=== PATIENT | male | born 1935 | race Caucasian/White ===

== ENCOUNTER 2016-09-24 05:07 | Emergency (ER) | payer MEDICARE, OTHER ==
[2016-09-24] MEDS ORDERED: DEXAMETHASONE 10 MG/ML VIAL PO STA (05:56)
[2016-09-24] MEDS ORDERED: ALBUTEROL NEB 2.5 MG/3 ML INH STA (05:56)
[2016-09-24] MEDS ORDERED: BENZONATATE 100 MG CAPSULE PO STA (05:56)
[2016-09-24] MEDS ORDERED: BENZONATATE 100 MG CAPSULE PO ONE (05:59)
[2016-09-24] MEDS ORDERED: CHERRY SYRUP 10 ML UDC PO ONE (05:59)
[2016-09-24] MEDS ORDERED: DEXAMETHASONE 10 MG/ML VIAL ONE (05:59)
[2016-09-24] MEDS ORDERED: ALBUTEROL NEB 2.5 MG/3 ML INH ONE (06:05)
== END 2016-09-24 07:19 | disposition home or self-care (01) ==
DX: J40 Bronchitis, not specified as acute or chronic (principal); I10 Essential (primary) hypertension; Z85.118 Personal history of other malignant neoplasm of bronchus and lung; Z87.01 Personal history of pneumonia (recurrent)
CPT/HCPCS: 71020; 94640; 99283; A9270; J7613

== ENCOUNTER 2017-08-19 13:40 | Outpatient (CLI) | payer MEDICARE, OTHER ==
[2017-08-19 18:18] LABS: CALCIUM 9.8 mg/dL (8.5-10.3); CREATININE 1.1 mg/dL (0.6-1.2)
== END 2017-08-19 13:41 | disposition home or self-care (01) ==
LOC: LAB.F 13:40
PROVIDERS: ATTEND Internal Medicine
DX: I10 Essential (primary) hypertension (principal)
CPT/HCPCS: 36415; 80048

== ENCOUNTER 2018-01-14 10:09 | Outpatient (CLI) | payer MEDICARE, OTHER ==
--- NOTE | 2018-01-14 22:02 | XRAY Report ---
Procedure Date: 01/14/2018 Accession Number: [id number] / [id number] Procedure: XRS - Cervical Spine Complete CPT Code: FULL RESULT: EXAM: CERVICAL SPINE RADIOGRAPHY EXAM DATE: 01/14/2018 10:23 AM. 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 COMPARISONS: None. TECHNIQUE: 5 views, including oblique views. FINDINGS: Alignment: Minimal scoliosis. Normal lordosis. No listhesis. Bones: The cervical vertebral bodies and posterior elements are well-visualized from the skull base through C7-T1. No fractures or bone lesions. Disks: Mild disk space narrowing at C4-C5. Other disk spaces preserved. Facets: Generalized degenerative changes. Neural Foramina: Narrowing on the right at C4-C5 and C5-C6. More prominent narrowing on the left at C3-C4 and C4-C5. Soft Tissues: No prevertebral soft tissue swelling. Mild dilation of the aortic arch, measuring 4.6 cm in this study. Clear visualized lung. IMPRESSION: 1. Multilevel degenerative changes, with neural foraminal narrowing, left more than right. 2. Dilated aortic arch. Dedicated imaging may be helpful. [facility]
== END 2018-01-14 10:10 | disposition home or self-care (01) ==
LOC: DI.S 10:09
PROVIDERS: ATTEND Nurse Practitioner Family
DX: M50.321 Other cervical disc degeneration at C4-C5 level (principal); M47.892 Other spondylosis, cervical region; I77.810 Thoracic aortic ectasia
CPT/HCPCS: 72050

== ENCOUNTER 2018-01-24 12:56 | Outpatient (CLI) | payer MEDICARE, OTHER | END 2018-01-24 12:57 | disposition home or self-care (01) | LOC: DI 12:56 | PROVIDERS: ATTEND Physician Assistant | DX: I77.810 Thoracic aortic ectasia (principal) | CPT/HCPCS: 93306 ==

== ENCOUNTER 2019-03-10 19:10 | Outpatient (CLI) | payer MEDICARE, OTHER | END 2019-03-10 19:11 | disposition home or self-care (01) | LOC: SC 19:10 | PROVIDERS: ATTEND Internal Medicine Pulmonary Disease | DX: G47.33 Obstructive sleep apnea (adult) (pediatric) (principal) | CPT/HCPCS: 95810 ==

== ENCOUNTER 2019-03-19 11:10 | Outpatient (CLI) | payer MEDICARE, OTHER ==
--- NOTE | 2019-03-19 12:36 | SLEEP CARE CONSULTATION ---
Information from patient questionnaire entered by Sandra Baker. I have reviewed and concur with the information entered by Sandra Baker. This document represents the service I personally performed and the decisions made by me, Kathe Jones RN, MSN, TECHNICAL SALES REPRESENTATIVE. History of Present Illness Initial [place] Sleepiness Scale score: 8 Current [place] Sleepiness Scale score: 15 Additional HPI information: JESSE ZAMBRANO returns for follow up of the recently performed polysomnography. The patient was informed of the following polysomnography findings as noted in study section of this report. I explained the pathophysiology behind obstructive sleep apnea. We then spent quite a bit of time discussing different treatment options. For mild obstructive sleep apnea, surgery and oral appliance are alternatives to nasal CPAP therapy but in moderate or severe cases, nasal CPAP is the most effective and reliable treatment. After some discussion, the patient opted to go with the nasal CPAP therapy. Nasal autoCPAP set at [id number] will be ordered with rationale explained until a manual titration study can be completed to determine optimal treatment mode. I explained how CPAP machine works with sample devices [employer] Dreamstation and [id number] and what to expect when using the machine. He would like to use the Dreamstation from his previous research. Using CPAP every night in order to get used to it was emphasized. Patient advised to put CPAP mask on before getting into bed so as not to fall asleep without CPAP. To assist acclimation to CPAP use, it could also be used for a short time during day while reading or watching TV. The patient was instructed to call the CPAP supplier to discuss any mechanical problem that may occur. If the mask given is uncomfortable or is difficult to keep on through the night even with adjustment, contact the CPAP supplier as many will replace with another mask style if notified before 30 days. If snoring or perceives is not getting enough air or too much air from the machine, notify this office. [facility] patient education PAP tips reviewed and given to patient. Patient counseled not drink alcohol less than 4 hours before bedtime as it can increase snoring and apnea. Patient was cautioned about risks of drowsy driving until sleepiness symptoms resolve. Patient denies drowsy driving. [facility] patient education on snoring and sleep apnea given and reviewed. Sleep Study - Polysomnography Polysomnography findings: The quality of the study is good. The patient had normal sleep efficiency. The sleep architecture was abnormal for sleep fragmentation and reduced amount of time spent in REM and slow wave sleep (N3). Respiratory monitoring showed severe obstructive sleep apnea-hypopnea (AHI = 57.0) associated with frequent arousals, oxyhemoglobin desaturation and moderate hypoxia (brandyn oxygen saturation of 74 %). The patient only slept supine during this study (supine AHI = 57.0; non- supine = 0.00). Snore was loud in intensity. There was no periodic leg movement of sleep. Cardiac rhythm was normal sinus rhythm without significant arrhythmia. No abnormal behavior (parasomnia) observed during the night. Allergies and Home Medications Known drug allergies: No Home medication list reviewed: Yes Allergy and home medication list: losartan 1 daily triamterene 1/2 daily singular 1 daily lycine 1 daily omeprazole daily ibuprofen as needed carisoprodol ( Soma) as needed Review of Systems Review of systems same as previous: Yes (He denies any changes) Physical Exam Blood Pressure: 114/60 Cuff size: regular Height: 5 ft 8 in Weight (kg): 73.573 kg Body Mass Index: 24.6 BMI Classification: Healthy weight Impression and Plan 1. Obstructive Sleep Apnea-Hypopnea Syndrome, severe, with lowest oxygen saturation of 74%. Obviously this is the cause of the patients symptoms of unrefreshed sleep, and excessive daytime sleepiness. Positive pressure therapy could benefit his hypertension. As mentioned above, the patient will be started on nasal autoCPAP therapy with pressure set at 4-15 cmH2O until a manual titration study can be completed to find optimal treatment mode. An urgent request for set up was requested due to apnea severity and hypoxia. Compliance guidelines also reviewed. A copy of compliance guidelines will be given for reference. Since it is unknown whether his apnea is less non-supine, I advised patient to sleep with head of bed elevated 30-40 degrees to reduce some apnea risk. For his report of waking to loud noise from apneas that his does not hear, I will confer with Dr. Montoya. * Nasal auto CPAP therapy, pressure at 4-15cm H2O. * Schedule manual titration study. * Avoid alcohol consumption / muscle relaxants near bedtime. * The patient is again cautioned about driving until sleepiness completely resolves. * Confer with Dr. Montoya re loud noise report. * Return one month after CPAP obtained. I will assess response to therapy and compliance at that time. Addendum: 17:15 message was left on dedicated voicemail when noted muscle relaxant on his med list. Advised to abstain use prior to bed like alcohol or any sedative due to increased risk of apnea with use. Patient advised to call if any questions. I spent 100% of this 35 minute visit face to face with the patient with greater than 50% of this was spent time counseling the patient and coordination of care.
[2019-03-19 12:37] VITALS: BP 114/60
== END 2019-03-19 11:11 | disposition home or self-care (01) ==
LOC: SC 11:10
PROVIDERS: ATTEND Nurse Practitioner Family
DX: G47.33 Obstructive sleep apnea (adult) (pediatric) (principal)
CPT/HCPCS: 99215; G0463; 99212

== ENCOUNTER 2019-04-10 19:37 | Outpatient (CLI) | payer MEDICARE, OTHER | END 2019-04-10 19:38 | disposition home or self-care (01) | LOC: SC 19:37 | PROVIDERS: ATTEND Internal Medicine Pulmonary Disease | DX: G47.33 Obstructive sleep apnea (adult) (pediatric) (principal) | CPT/HCPCS: 95811 ==

== ENCOUNTER 2019-05-11 12:49 | Outpatient (CLI) | payer MEDICARE, OTHER ==
--- NOTE | 2019-05-11 14:15 | SLEEP CARE CONSULTATION ---
Information from patient questionnaire entered by Sandra Baker. I have reviewed and concur with the information entered by Sandra Baker. This document represents the service I personally performed and the decisions made by me, Kathe Jones, RN, MSN, PHOTOCOMPOSING MACHINE OPERATOR. History of Present Illness Previous diagnosis: Severe, Obstructive Sleep Apnea-Hypopnea Syndrome AHI: 57 Reason for CPAP/BiPAP follow up: first compliance, with manual titration Equipment obtained from: [employer] (in [place]) Mask style: Full face Mask brand: Respironics Backup mask available: No Last cushion change: not since set up Sleep Study - Polysomnography Polysomnography findings: The quality of the study is good. CPAP was initiated at 4 cmH2O and titrated up to BiPAP at 20/16 cmH2O. CPAP at 12 cmH2O appeared to be best (AHI of 9.5 per hour on the pressure). There was supine REM sleep on the pressure. Oxygen saturation was mildly low due to the frequent residual respiratory events on lower and higher pressures. The patient appeared to have tolerated positive airway pressure therapy fairly well. The patients sleep efficiency was reduced due to sleep onset insomnia and several awakenings during the night. The sleep architecture was abnormal for sleep fragmentation and reduced amount of time spent in REM sleep. There was no significant periodic limb movement of sleep. Cardiac rhythm was normal sinus rhythm without significant arrhythmia (40 - 62). No abnormal behavior (parasomnia) observed during the night. CPAP Compliance Data - Data Reviewed with Patient Average duration of nightly device use: 8.5 Compliance rate %: 100 Current pressure setting (cmH2O): 4-15 Humidity settin Heated hose settin Average residual AHI: 15.1 Central apnea: 2.9 Obstructive apnea: 7.5 Hypopnea: 4.7 Average large leak: 7 mins 54 secs Subjective Patient concerns: reports: air blowing in eyes (occasional and resolved with adjustment), mask leak noise (occasional). denies: aerophagia, mask discomfort, condensation in mask/hose, nasal congestion, dry mouth, nose, throat, epistaxis Observed to snore while using device: No Current pressure setting perceived as: too high (and will use ramp and ramp too low) On therapy, patient: reports: sleeping better, awakening more refreshed, being more awake and alert during the day, more rested overall. denies: drowsiness while driving Initial [place] Sleepiness Scale score: 8 Current [place] Sleepiness Scale score: 7 Allergies and Home Medications Known drug allergies: No Home medication list reviewed: Yes (no changes / all daily except omeprazole as needed ) Review of Systems Review of systems same as previous: Yes Physical Exam Blood Pressure: 116/66 Heart Rate: 60 O2 Saturation: 97 Weight: 167 lb 9.6 oz Impression and Plan 1. Obstructive Sleep Apnea-Hypopnea Syndrome, severe, with good treatment compliance and elevated residual AHI. On CPAP therapy, the patient has better sleep quality and is more rested overall. He now is able to sleep through the night without nocturia as before. The strange noise he noted when waking with apnea prior to treatment is resolved. To reduce his reservoir water running out at end of night, he is advised to reduce heated hose setting and adjust as needed. The titration study showed his best AHI of 9.5 at [id number] pressure. His compliance report showed best AHI at [id number]. So I will change autoCPAP pressure to [id number]. I will also increase ramp to 6cmH20 for comfort snd showed patient how to change ramp on sample CPAP. These change in settings should reduce air hunger at beginning of treatment and reduce feeling of too high of pressure in middle of night. The mask cushion is advised to be changed regularly to maintain firt and comfort of mask which will also reduce mask leaks. Patient's apnea severity and rationale for treatment to reduce apnea, improve sleep quality and reduce cardiovascular and cerebrovascular events was reviewed. I also reviewed the benefit of consistent device use of CPAP for hypertension, gastric reflux. * * Change autoCPAP pressure to 11-12 cmH2O * Notify me if snoring with mask or feeling that the pressure is too much or too little * Update mask cushion * Adjust heated hose * Return for follow up in 1-2 months , or sooner if concerns arise I spent 100% of this 35 minute visit face to face with the patient with greater than 50% of this was spent time counseling the patient and coordination of care.
[2019-05-11 14:16] VITALS: BP 116/66
== END 2019-05-11 12:50 | disposition home or self-care (01) ==
LOC: SC 12:49
PROVIDERS: ATTEND Nurse Practitioner Family
DX: G47.33 Obstructive sleep apnea (adult) (pediatric) (principal)
CPT/HCPCS: 99214; G0463; 99212

== ENCOUNTER 2019-07-01 13:39 | Outpatient (CLI) | payer MEDICARE, OTHER ==
[2019-07-01 15:03] VITALS: BP 122/60
--- NOTE | 2019-07-01 15:03 | SLEEP CARE CONSULTATION ---
Information from patient questionnaire entered by Sandra Baker. I have reviewed and concur with the information entered by Sandra Baker. This document represents the service I personally performed and the decisions made by me, Kathe Jones, RN, MSN, VIDEO SPECIALIST. History of Present Illness Previous diagnosis: Severe, Obstructive Sleep Apnea-Hypopnea Syndrome AHI: 57 Reason for follow up: other (2 month) Equipment type: CPAP Equipment obtained from: [employer] ([place]) Mask style: Full face Backup mask available: No Last cushion change: a week ago HPI additional information: The reduction of heated hose reduced running out water in reservoir. The increase in flatuance has reduced about 50% with use of Gas X. we looked up side effects of gas x online and none noted. The ramp increased setting setting is more comfortable. CPAP Compliance Data - Data Reviewed with Patient Average duration of nightly device use: 8.4 Compliance rate %: 100 (60 days) Current pressure setting (cmH2O): 11-12 Humidity settin Heated hose settin Average residual AHI: 11.5 (patient has noted increased AHI when he sleeps supine ) Central apnea: 1.5 Obstructive apnea: 7.2 Hypopnea: 2.8 Average large leak: 18 min 23 sec Subjective Patient concerns: reports: other (stiff neck from sleeping on his side with hand on pillow to keep mask from making noise. / reports less nocturia and nasal congestion as well as memory since use of CPAP). denies: aerophagia, mask discomfort, air blowing in eyes, mask leak noise, condensation in mask/hose, nasal congestion, dry mouth, nose, throat, epistaxis Observed to snore while using device: No Current pressure setting perceived as: comfortable On therapy, patient: reports: sleeping better, awakening more refreshed, being more awake and alert during the day, more rested overall. denies: drowsiness while driving Initial [place] Sleepiness Scale score: 8 Current [place] Sleepiness Scale score: 4 Allergies and Home Medications Known drug allergies: No Home medication list reviewed: Yes (no changes on list ) Review of Systems Review of systems same as previous: No (ear fungus) Physical Exam Blood Pressure: 122/60 Cuff size: long (5 8) Heart Rate: 49 (50 apical and regular ) O2 Saturation: 98 Height: 5 ft 8 in Weight: 170 lb 6.4 oz Body Mass Index: 25.9 BMI Classification: Overweight Impression and Plan 1. Obstructive Sleep Apnea-Hypopnea Syndrome,severe , with good treatment compliance and slightly elevated residual AHI. . On CPAP therapy, the patient has better sleep quality and is more rested overall. He has also noted benefit in his memory and reduction of nocturia since CPAP use. His questions about supplies and replacement were answered. Replacement supply schedule given and reviewed. He would also like to change from a full face mask with chinstrap to a nasal mask with chinstrap. In addition, he would lie to try a new style of chinstrap. To reduce mask movement when sleeping on his side, I showed him a CPAP pillow. This and other styles can be bought online for about $60. This should reduce the stiff neck from holding his pillow in place. Since he is experiencing increased flatus with CPAP use that is only reduced with use of Gas X, I will try a slightly lower pressure range of [id number] which showed good control of his apnea. He is to contact me if the pressure change is uncomfortable or if he notices increase in residual AHI which he monitors daily on his device. I will also increase his ramp to 8cmH20 to improve comfort of air at initiation of therapy per patient request. Patient's apnea severity and rationale for treatment to reduce apnea, improve sleep quality and reduce cardiovascular and cerebrovascular events was reviewed. I also reviewed the benefit of consistent device use of CPAP for hypertension. * * Change CPAP pressure to 11 cmH2O * Change ramp to 8cmH20. * Consider CPAP pillow * mask refitting * chinstrap refitting. * Notify me if snoring with mask or feeling that the pressure is too much or too little or if having difficulty using CPAP. * Attempt to lose weight * Return for follow up in 6 months , or sooner if concerns arise I spent 100% of this 45 minute visit face to face with the patient with greater than 50% of this was spent time counseling the patient and coordination of care as well as answering his questions about apnea treatment.
== END 2019-07-01 13:40 | disposition home or self-care (01) ==
LOC: SC 13:39
PROVIDERS: ATTEND Nurse Practitioner Family
DX: G47.33 Obstructive sleep apnea (adult) (pediatric) (principal)
CPT/HCPCS: 99214; G0463; 99212

== ENCOUNTER 2019-12-10 16:31 | Outpatient (CLI) | payer MEDICARE, OTHER ==
--- NOTE | 2019-12-10 14:23 | SLEEP CARE CONSULTATION ---
Information from patient questionnaire entered by Sandra Baker. I have reviewed and concur with the information entered by Sandra Baker. This document represents the service I personally performed and the decisions made by me, Kathe Jones, RN, MSN, MAP EDITOR. History of Present Illness Service Date and Time: 12/10/2019 1400 Previous diagnosis: Severe, Obstructive Sleep Apnea-Hypopnea Syndrome AHI: 57 (in 2019) Reason for follow up: other (5 month) Equipment type: CPAP Equipment obtained from: [employer] (in [place]) Mask style: Nasal Mask brand: Respironics (dreamwear) Backup mask available: Yes (old mask ) Last cushion change: 3 months CPAP Compliance Data - Data Reviewed with Patient Average duration of nightly device use: 8.1 Compliance rate %: 100 (90 days) Current pressure setting (cmH2O): 11 Humidity settin Heated hose settin Average residual AHI: 4.9 Average large leak: 1 min 40 sec Subjective Patient concerns: reports: mask leak noise (much less and residual AHI less since switched from full face mask with chinstrap to nasal mask with chinstrap). denies: aerophagia, mask discomfort, air blowing in eyes, condensation in mask/hose, nasal congestion, dry mouth, nose, throat, epistaxis Observed to snore while using device: No Current pressure setting perceived as: comfortable On therapy, patient: reports: sleeping better, awakening more refreshed, being more awake and alert during the day, more rested overall. 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 Obstructive Sleep Apnea-Hypopnea Syndrome, severe, with excellent treatment compliance and good apnea control especially with change to nasal mask . On CPAP therapy, the patient has better sleep quality and is more rested overall. he is very pleased with benefit of treatment and getting supplies as needed. I reviewed the impact of weight changes to apnea risk and pressure requirements. Patient advised to maintain weight. Patient's apnea severity and rationale for treatment to reduce apnea, improve sleep quality and reduce hypertension, cardiovascular and cerebrovascular events was reviewed. * Continue CPAP pressure at 11 cmH2O * Notify me if snoring with mask or feeling that the pressure is too much or too little * maintain weight * Call this office if any problems using CPAP * Return for follow up in 1 year , or sooner if concerns arise Visit Type: Telehealth Video (to reduce risk of Covid 19 exposure) Video Type: Retidoc Patient Location: Home Location of Provider: Home Patient agrees and consents to this telehealth visit type: Yes Patient agrees to have their insurance billed: Yes Time Spent with Patient (minutes): 14 Provider Statement: I spent 100% of the Telehealth Video Call with the patient with greater than 50% spent counseling the patient and coordination of care.
== END 2019-12-10 16:32 | disposition home or self-care (01) ==
LOC: SC 16:31
PROVIDERS: ATTEND Nurse Practitioner Family
DX: G47.33 Obstructive sleep apnea (adult) (pediatric) (principal)

== ENCOUNTER 2020-12-12 10:03 | Outpatient (CLI) | payer MEDICARE, OTHER ==
--- NOTE | 2020-12-12 10:22 | SLEEP CARE CONSULTATION ---
Information from patient questionnaire entered by Sandra Baker. I have reviewed and concur with the information entered by Sandra Baker. This document represents the service I personally performed and the decisions made by me, Adrián Montoya MD, [facility]. History of Present Illness Service Date and Time: 12/12/2020 1003 Previous diagnosis: Severe, Obstructive Sleep Apnea-Hypopnea Syndrome AHI: 57.0 (in 2019) Reason for follow up: annual (last seen 11/2019) Equipment type: CPAP Equipment obtained from: [employer] Mask style: Nasal Prior sleep studies: Yes Year and Where: 2019 - [facility] Type of Sleep Study: Polysomnography HPI additional information: To minimize the risk of COVID-19 exposure, the patient has requested and consented to this video telemedicine visit. The patient also agrees to having his insurance billed. HPI: Mr. Waters was diagnosed to have severe obstructive sleep apnea-hypopnea syndrome and returns today for follow up of CPAP therapy. The patient purchased the device from [employer] and was fitted with a nasal mask plus a chinstrap. He uses the device nightly and all through the night. The compliance report shows that he uses the device 60 nights out of the past 60 nights, averaging 9 hours a night. He complains of flatulence but no particular problem with the device such as soreness on the face, dry nose, epistaxis, nasal congestion or headache. He thinks that the pressure of 11 cmH2O may be too high. On the CPAP therapy he notices improvement in his sleep quality, and that he wakes up feeling fresher in the morning and more awake/alert during the day. His notices no snore at all. The average residual AHI is 1.9; and average time in large leak per day is 45 seconds a night. CPAP Compliance Data - Data Reviewed with Patient Average duration of nightly device use: 9 hr 2 min Compliance rate %: 100 (60 days) Current pressure setting (cmH2O): 11 Humidity settin Heated hose settin Average residual AHI: 1.9 Average large leak: 45 sec Subjective Initial [place] Sleepiness Scale score: 8 (in 2019) Allergies and Home Medications Drug allergies reviewed: Yes Home medication list reviewed: Yes Review of Systems Review of systems same as previous: Yes Physical Exam Height: 5 ft 8 in Impression and Plan IMPRESSION: 1. Obstructive Sleep Apnea-Hypopnea Syndrome, severe (AHI was 57) with the patient continuing to do well on nasal CPAP therapy. He has excellent compliance and significant clinical benefits. The current pressure appears effective but causes aerophagia. I will lower the pressure. PLAN: 1. CPAP set to autoCPAP with pressure range of 6 - 11 cm H2O via the modem. 2. Return for a follow up in one month to recheck the AHI. Visit Type: Telehealth Video Video Type: VSee Patient Location: Home Location of Provider: Office Patient agrees and consents to this telehealth visit type: Yes Patient agrees to have their insurance billed: Yes Time Spent with Patient (minutes): 15 Provider Statement: I spent 100% of the Telehealth Video Call with the patient with greater than 50% spent counseling the patient and coordination of care.
== END 2020-12-12 10:04 | disposition home or self-care (01) ==
LOC: SC 10:03
PROVIDERS: ATTEND Internal Medicine Pulmonary Disease
DX: G47.33 Obstructive sleep apnea (adult) (pediatric) (principal)

== ENCOUNTER 2021-01-09 10:01 | Outpatient (CLI) | payer MEDICARE, OTHER ==
--- NOTE | 2021-01-09 12:33 | SLEEP CARE CONSULTATION ---
Information from patient questionnaire entered by Sandra Baker. I have reviewed and concur with the information entered by Sandra Baker. This document represents the service I personally performed and the decisions made by me, Adrián Montoya MD, [facility]. History of Present Illness Service Date and Time: 01/09/2021 1001 Previous diagnosis: Severe, Obstructive Sleep Apnea-Hypopnea Syndrome AHI: 57.0 (in 2019) Reason for follow up: one month Equipment type: CPAP Equipment obtained from: [employer] Mask style: Nasal Prior sleep studies: Yes Year and Where: 2019 - [facility] Type of Sleep Study: Polysomnography HPI additional information: HPI: Mr. Waters was diagnosed to have severe obstructive sleep apnea-hypopnea syndrome and was called today for follow up of CPAP therapy after the pressure was changed from 11 cmH2O to 6 11 cmH2O because of his complaint of aerophagia. He reports improvement just during the first few days. He continues to complain of flatulence. He feels that the CPAP starts off too low for the first 5 minutes. His ramp is on at 4 cmH2O and for 5 minutes. The residual AHI remains low at 4.2. No air leak. CPAP Compliance Data - Data Reviewed with Patient Average duration of nightly device use: 8 hr 39 min Compliance rate %: 93.3 Current pressure setting (cmH2O): 6-11 Humidity settin Heated hose settin Average residual AHI: 4.2 Average large leak: 0 Subjective Initial [place] Sleepiness Scale score: 8 (in 2019) Review of Systems Review of systems same as previous: Yes Physical Exam Height: 5 ft 8 in Impression and Plan IMPRESSION: 1. Obstructive Sleep Apnea-Hypopnea Syndrome, severe (AHI was 57) with the patient continuing to do well on nasal CPAP therapy. He has excellent compliance and significant clinical benefits. The current pressure appears effective but and comfortable except at the beginning of the night. I will turn the ramp off. PLAN: 1. CPAP set to autoCPAP with pressure range of 6 - 8 cm H2O and ramp turned off via the modem. 2. Return for follow up in a year or earlier if there is any problem. Visit Type: Telehealth Video Video Type: VSee Patient Location: Home Location of Provider: Office Patient agrees and consents to this telehealth visit type: Yes Patient agrees to have their insurance billed: Yes Time Spent with Patient (minutes): 15 Provider Statement: I spent 100% of the Telehealth Video Call with the patient with greater than 50% spent counseling the patient and coordination of care.
== END 2021-01-09 10:02 | disposition home or self-care (01) ==
LOC: SC 10:01
PROVIDERS: ATTEND Internal Medicine Pulmonary Disease
DX: G47.33 Obstructive sleep apnea (adult) (pediatric) (principal)

== ENCOUNTER 2021-06-27 08:00 | Outpatient (CLI) | payer MEDICARE, OTHER | END 2021-06-27 23:59 | LOC: LAB.S 08:00 | PROVIDERS: ATTEND Physician Assistant Medical | DX: L03.113 Cellulitis of right upper limb (principal) | CPT/HCPCS: 87070; 87077; 87181; 87205 ==

== ENCOUNTER 2022-01-05 20:56 | Outpatient (CLI) | payer MEDICARE, OTHER | END 2022-01-05 20:57 | disposition home or self-care (01) | LOC: LAB 20:56 | PROVIDERS: ATTEND Physician Assistant Medical | DX: L98.9 Disorder of the skin and subcutaneous tissue, unspecified (principal); L03.316 Cellulitis of umbilicus | CPT/HCPCS: 87070; 87205 ==

== ENCOUNTER 2022-02-26 14:29 | Outpatient (CLI) | payer MEDICARE, OTHER ==
[2022-02-26 16:00] VITALS: BP 155/91
--- NOTE | 2022-02-26 16:00 | SLEEP CARE CONSULTATION ---
Information from patient questionnaire entered by Mandie Hudson MA. I have reviewed and concur with the information entered by Mandie Hudson MA. This document represents the service I personally performed and the decisions made by me, Adrián Montoya MD, [facility]. History of Present Illness Service Date and Time: 02/26/2022 1429 Previous diagnosis: Severe, Obstructive Sleep Apnea-Hypopnea Syndrome AHI: 57.0 (in 2019) Reason for follow up: annual (LAST SEEN 12/2020, LAURA, LALA 03/25/2019, ) Equipment type: CPAP Equipment obtained from: [employer] Mask style: Nasal [facility]: Yes [facility] Type of Sleep Study: Polysomnography HPI additional information: Mr. Waters was diagnosed to have severe obstructive sleep apnea-hypopnea syndrome and returns today for follow up of CPAP therapy. The patient purchased the device from [employer] and was fitted with nasal pillows plus a chinstrap. He continues to use the device nightly and all through the night. The compliance report shows that he uses the device 356 nights out of the past 365 nights, averaging 9 hours a night. He complains of no particular problem with the device such as soreness on the face, dry nose, epistaxis, nasal congestion or headache. He thinks that the pressure of 6 - 8 cmH2O seems comfortable. On the CPAP therapy he notices improvement in his sleep quality, and that he wakes up feeling fresher in the morning and more awake/alert during the day. The average residual AHI is 5.9; and average time in large leak per day is 0 second a night. The patient is using a replacement machine that was sent to him from [employer] Sleep Study - Results Type of Sleep Study: Polysomnography Prior sleep studies: Yes [facility] CPAP Compliance Data - Data Reviewed with Patient Average duration of nightly device use: 8 HOURS 47 MINUTES Compliance rate %: 95.6 (11/21/21-02/18/22) Current pressure setting (cmH2O): 6-8 Humidity settin Heated hose settin Average residual AHI: 5.4 Average large leak: .0 Subjective Missed days of use due to: reports: illness (MOHS ON LEFT TAOIST, ) Initial [place] Sleepiness Scale score: 8 (in 2019) Allergies and Home Medications Drug allergies reviewed: Yes Home medication list reviewed: Yes Allergy and home medication list: Allergies No Known Drug Allergies Allergy (Verified 09/24/16 06:11) Review of Systems Review of systems same as previous: Yes Physical Exam Vital signs obtained and entered by: CLOVIS PRAKASH Blood Pressure: 155/91 (RESP 18, PULSE 52,) Heart Rate: 54 O2 Saturation: 98 Height: 5 ft 8 in Weight: 159 lb 9.6 oz Body Mass Index: 24.3 BMI Classification: Healthy weight Impression and Plan IMPRESSION: 1. Obstructive Sleep Apnea-Hypopnea Syndrome, severe (AHI was 57) with the patient continuing to do well on nasal CPAP therapy. He has excellent compliance and significant clinical benefits. The residual AHI is slightly higher on his replacement unit. Because most of the residual apneas are central, I will lower the pressure. PLAN: 1. Lower his new autoCPAP to 4 - 6 cm H2O via the modem. Return for follow up in two months to recheck the residual AHI. Adjust device pressure to (cmH2O): 4 - 6 Follow up with Sleep Care in: 1-2 months Visit Type: In Office Time Spent with Patient (minutes): 20 Provider Statement: I spent 100% of the Face to Face Visit with the patient with greater than 50% spent counseling the patient and coordination of care.
== END 2022-02-26 14:30 | disposition home or self-care (01) ==
LOC: SC 14:29
PROVIDERS: ATTEND Internal Medicine Pulmonary Disease
DX: G47.33 Obstructive sleep apnea (adult) (pediatric) (principal)
CPT/HCPCS: 99213; G0463; 99212

== ENCOUNTER 2022-04-30 12:50 | Outpatient (CLI) | payer MEDICARE, OTHER ==
[2022-04-30 13:18] VITALS: BP 140/88
--- NOTE | 2022-04-30 13:18 | SLEEP CARE CONSULTATION ---
Information from patient questionnaire entered by Colt Su. I have reviewed and concur with the information entered by Colt Su. This document represents the service I personally performed and the decisions made by me, Adrián Montoya MD, [facility]. History of Present Illness Service Date and Time: 04/30/2022 1250 Previous diagnosis: Severe, Obstructive Sleep Apnea-Hypopnea Syndrome AHI: 57.0 (in 2019) Reason for follow up: other (2 MONTH F/U) Equipment type: CPAP ([employer]) Equipment obtained from: [employer] Mask style: Nasal Prior sleep studies: Yes Year and Where: 2019 - [facility] Type of Sleep Study: Polysomnography HPI additional information: Mr. Waters was diagnosed to have severe obstructive sleep apnea-hypopnea syndrome and returns today for follow up of CPAP therapy after the pressure change 2 months ago. The patient purchased the device from [employer] and was fitted with nasal pillows plus a chinstrap. He continues to use the device nightly and all through the night. The compliance report shows that he uses the device 30 nights out of the past 30 nights, averaging 8.8 hours a night. He complains of flatulence that did not get better with lowering the pressure. He thinks that the pressure of 4 6 (was 6 8) cmH2O seems comfortable. On the CPAP therapy he notices improvement in his sleep quality, and that he wakes up feeling fresher in the morning and more awake/alert during the day. The average residual AHI is 7.4 (was 5.9); and average time in large leak per day is 1 L/minute. The patient is using a replacement machine that was sent to him from [employer]. Sleep Study - Results Type of Sleep Study: Polysomnography Prior sleep studies: Yes Year and Where: 2019 - Loc[facility] CPAP Compliance Data - Data Reviewed with Patient Average duration of nightly device use: 8 hours, 53 minutes, 34 seconds Compliance rate %: 96.7 (10/17/21 to 04/14/22) Current pressure setting (cmH2O): 4-6 Average residual AHI: 5.5 Subjective Initial [place] Sleepiness Scale score: 8 (in 2019) Allergies and Home Medications Drug allergies reviewed: Yes Home medication list reviewed: Yes Allergy and home medication list: Allergies No Known Drug Allergies Allergy (Verified 09/24/16 06:11) Review of Systems Review of systems same as previous: Yes Physical Exam Vital signs obtained and entered by: RAMÓN NIEVES Blood Pressure: 140/88 (RIGHT ARM ) Cuff size: regular Heart Rate: 48 O2 Saturation: 97 Height: 5 ft 8 in Weight: 166 lb Body Mass Index: 25.2 BMI Classification: Overweight Impression and Plan IMPRESSION: 1. Obstructive Sleep Apnea-Hypopnea Syndrome, severe (AHI was 57) with the patient continuing to do well on nasal CPAP therapy. He has excellent compliance and significant clinical benefits. The residual AHI is now higher with lower pressure. Therefore, I will try the other direction. PLAN: 1. Raising his autoCPAP to 8 - 12 cm H2O via the modem. 2. Return for follow up in one month to recheck the residual AHI. Adjust device pressure to (cmH2O): 8 - 12 Follow up with Sleep Care in: 1-2 months Visit Type: In Office Time Spent with Patient (minutes): 15 Provider Statement: I spent 100% of the Face to Face Visit with the patient with greater than 50% spent counseling the patient and coordination of care.
== END 2022-04-30 12:51 | disposition home or self-care (01) ==
LOC: SC 12:50
PROVIDERS: ATTEND Internal Medicine Pulmonary Disease
DX: G47.33 Obstructive sleep apnea (adult) (pediatric) (principal)
CPT/HCPCS: 99212; G0463

== ENCOUNTER 2022-09-20 07:00 | Outpatient (CLI) | payer MEDICARE, OTHER ==
--- NOTE | 2022-09-20 21:05 | XRAY Report ---
PROCEDURE: Chest 2 View X-Ray INDICATIONS: WHEEZING TECHNIQUE: 2 views of the chest were acquired. COMPARISON: Cervical spine radiographs 01/14/2018. CXR 09/24/2016. FINDINGS: Surgical changes and devices: None. Lungs and pleura: No pleural effusions or pneumothorax. No consolidation. Mediastinum: Mediastinal contours are normal. Heart size is normal. Bones and chest wall: Sclerotic focus at the medial left clavicle. Not definitely seen on prior x-ray s. Soft tissues appear unremarkable. IMPRESSION: No acute cardiopulmonary abnormality. Bone island or sclerotic focus at the medial left clavicle. Alternatively, this could represent a sma ll pulmonary nodule. This could be further evaluated with CT chest. Reviewed by: Jarad Alvarenga MD on 09/20/2022 9:04 PM [facility] Approved by: Jarad Alvarenga MD on 09/20/2022 9:04 PM [facility] Station ID: [id number]
== END 2022-09-20 23:59 | disposition home or self-care (01) ==
LOC: DI.S 07:00
PROVIDERS: ATTEND Physician Assistant
DX: R06.2 Wheezing (principal)

== ENCOUNTER 2022-09-25 12:41 | Outpatient (CLI) | payer MEDICARE, OTHER ==
--- NOTE | 2022-09-25 13:40 | XRAY Report ---
PROCEDURE: Chest 2 View X-Ray INDICATIONS: COPD, ACUTE EXACERBATION TECHNIQUE: 2 views of the chest were acquired. COMPARISON: None. FINDINGS: Surgical changes and devices: None. Lungs and pleura: No pleural effusions or pneumothorax. Lungs are clear. Mediastinum: Mediastinal contours are normal. Heart size is normal. Bones and chest wall: No suspicious bony abnormalities. Soft tissues appear unremarkable. IMPRESSION: No acute cardiopulmonary disease process. Reviewed by: Fabiola Beth MD, PhD on 09/25/2022 1:39 PM [facility] Approved by: Fabiola Beth MD, PhD on 09/25/2022 1:39 PM [facility] Station ID: [id number]
== END 2022-09-25 12:42 | disposition home or self-care (01) ==
LOC: DI.S 12:41
PROVIDERS: ATTEND Emergency Medicine
DX: J44.1 Chronic obstructive pulmonary disease with (acute) exacerbation (principal)

== ENCOUNTER 2022-10-01 16:23 | Emergency (ER) | payer MEDICARE, OTHER ==
[2022-10-01 16:48] VITALS: BP 170/86
--- OUTSIDE RECORDS SUMMARY | 2022-10-01 17:14 | EXTERNAL MEDICAL SUMMARY RPT | Continuity of Care Document ---
:1935 Author Organization [facility] Address [address] [place] [address] Phone Care Team Providers Name Role Phone Unavailable Unavailable Unavailable Jian Kerr Md Unavailable Unavailable Kevin Landaverde Enp, Lary Unavailable Unavailable Denise Vegas, Francisco Unavailable Unavailable Allergies No information. Encounters No information. Functional Status No information. Immunizations No information. Medications date description facility 2022-09-29 00:00 azithromycin [facility] 2022-09-21 00:00 cephalexin [facility] 2022-09-25 00:00 cephalexin [facility] 2022-09-26 00:00 cephalexin [facility] 2022-09-29 00:00 cephalexin [facility] 2022-10-01 00:00 cephalexin [facility] 2022-09-20 00:00 prednisone [facility] 2022-09-20 00:00 prednisone [facility] 2022-09-20 00:00 prednisone [facility] 2022-09-25 00:00 prednisone [facility] 2022-09-25 00:00 prednisone [facility] 2022-09-21 00:00 cephalexin [facility] 2022-09-25 00:00 cephalexin [facility] 2022-09-26 00:00 cephalexin [facility] 2022-09-29 00:00 cephalexin [facility] 2022-10-01 00:00 cephalexin [facility] 2022-09-29 00:00 azithromycin [facility] 2022-09-25 00:00 doxycycline monohydrate [facility] 2022-09-25 00:00 doxycycline monohydrate [facility] 2022-09-29 00:00 dextromethorphan-guaifenesin [facility] 2022-09-25 00:00 doxycycline monohydrate [facility] 2022-09-25 00:00 doxycycline monohydrate [facility] 2022-09-20 00:00 prednisone [facility] 2022-09-20 00:00 prednisone [facility] 2022-09-20 00:00 prednisone [facility] 2022-09-25 00:00 prednisone [facility] 2022-09-25 00:00 prednisone [facility] 2022-09-21 00:00 omeprazole [facility] 2022-09-25 00:00 omeprazole [facility] 2022-09-26 00:00 omeprazole [facility] 2022-09-29 00:00 omeprazole [facility] 2022-10-01 00:00 omeprazole [facility] 2022-09-29 00:00 azithromycin [facility] 2022-09-20 00:00 prednisone [facility] 2022-09-20 00:00 prednisone [facility] 2022-09-20 00:00 prednisone [facility] 2022-09-25 00:00 prednisone [facility] 2022-09-25 00:00 prednisone [facility] 2022-09-21 00:00 cephalexin [facility] 2022-09-25 00:00 cephalexin [facility] 2022-09-26 00:00 cephalexin [facility] 2022-09-29 00:00 cephalexin [facility] 2022-10-01 00:00 cephalexin [facility] 2022-09-25 00:00 doxycycline monohydrate [facility] 2022-09-25 00:00 doxycycline monohydrate [facility] 2022-09-21 00:00 cephalexin [facility] 2022-09-25 00:00 cephalexin [facility] 2022-09-26 00:00 cephalexin [facility] 2022-09-29 00:00 cephalexin [facility] 2022-10-01 00:00 cephalexin [facility] 2022-09-20 00:00 prednisone [facility] 2022-09-20 00:00 prednisone [facility] 2022-09-20 00:00 prednisone [facility] 2022-09-25 00:00 prednisone [facility] 2022-09-25 00:00 prednisone [facility] 2022-09-21 00:00 losartan [facility] 2022-09-25 00:00 losartan [facility] 2022-09-26 00:00 losartan [facility] 2022-09-29 00:00 losartan [facility] 2022-10-01 00:00 losartan [facility] 2022-09-21 00:00 losartan [facility] 2022-09-25 00:00 losartan [facility] 2022-09-26 00:00 losartan [facility] 2022-09-29 00:00 losartan [facility] 2022-10-01 00:00 losartan [facility] 2022-09-29 00:00 dextromethorphan-guaifenesin [facility] 2022-09-20 00:00 albuterol sulfate [facility] 2022-09-20 00:00 albuterol sulfate [facility] 2022-09-20 00:00 albuterol sulfate [facility] 2022-09-20 00:00 albuterol sulfate [facility] 2022-09-20 00:00 albuterol sulfate [facility] 2022-09-20 00:00 albuterol sulfate [facility] 2022-09-21 00:00 omeprazole [facility] 2022-09-25 00:00 omeprazole [facility] 2022-09-26 00:00 omeprazole [facility] 2022-09-29 00:00 omeprazole [facility] 2022-10-01 00:00 omeprazole [facility] 2022-09-25 00:00 doxycycline monohydrate [facility] 2022-09-25 00:00 doxycycline monohydrate [facility] 2022-09-29 00:00 azithromycin [facility] 2022-09-21 00:00 omeprazole [facility] 2022-09-25 00:00 omeprazole [facility] 2022-09-26 00:00 omeprazole [facility] 2022-09-29 00:00 omeprazole [facility] 2022-10-01 00:00 omeprazole [facility] 2022-09-29 00:00 dextromethorphan-guaifenesin Walk-In [facility] 2022-09-21 00:00 omeprazole [facility] 2022-09-25 00:00 omeprazole [facility] 2022-09-26 00:00 omeprazole [facility] 2022-09-29 00:00 omeprazole [facility] 2022-10-01 00:00 omeprazole [facility] 2022-09-20 00:00 albuterol sulfate [facility] 2022-09-20 00:00 albuterol sulfate [facility] 2022-09-20 00:00 albuterol sulfate [facility] je[facility] 2022-09-21 00:00 losartan [facility] ochoajeremy 2022-09-25 00:00 losartan [facility] ochoajeremy 2022-09-26 00:00 losartan [facility] ochoajeremy 2022-09-29 00:00 losartan [facility] ochoajeremy 2022-10-01 00:00 losartan [facility] ochoajeremy 2022-09-20 00:00 albuterol sulfate [facility] 2022-09-20 00:00 albuterol sulfate [facility] 2022-09-20 00:00 albuterol sulfate [facility] ochoajeremy 2022-09-21 00:00 losartan [facility] ochoajeremy 2022-09-25 00:00 losartan [facility] 2022-09-26 00:00 losartan [facility] 2022-09-29 00:00 losartan [facility] 2022-10-01 00:00 losartan [facility] Problems date description facility 2022-09-20 00:00 Acute bronchitis [facility] 2022-09-20 00:00 Acute bronchitis [facility] 2022-09-20 00:00 Acute bronchitis [facility] 2022-09-20 00:00 Acute bronchitis with [facility]ospasm [facility] 2022-09-20 00:00 Acute bronchitis with bronchospasm [facility] 2022-09-20 00:00 Acute bronchitis with bronchospasm [facility] 2022-09-20 00:00 Acute bronchitis, unspecified [facility] 2022-09-20 00:00 Acute bronchitis, unspecified [facility] 2022-09-20 00:00 Acute bronchitis, unspecified [facility] 2022-09-20 00:00 Wheezing [facility] 2022-09-20 00:00 Wheezing [facility] 2022-09-20 00:00 Wheezing [facility] 2022-09-25 00:00 Acute exacerbation of chronic [facility] obstructive airways disease [facility] 2022-09-25 00:00 Acute exacerbation of chronic [facility] obstructive airways disease [facility] 2022-09-25 00:00 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 2022-09-25 00:00 Obstructive chronic bronchitis [facility] & with (acute) exacerbation [facility] [place] 2022-09-25 00:00 Chronic obstructive pulmonary [facility] & disease with (acute) exacerbation [facility] [place] 2022-09-25 00:00 Chronic obstructive pulmonary [facility] & disease with (acute) exacerbation [facility] [place] 2022-09-25 00:00 Other specified interstitial [facility] Primary Care & pulmonary diseases [facility] 2022-09-25 00:00 Other specified interstitial [facility] diseases [facility] 2022-09-29 00:00 Pneumonia [facility] 2022-09-29 00:00 Unspecified essential hypertension [facility] 2022-09-29 00:00 Pneumonia, organism unspecified [facility] 2022-09-29 00:00 Systolic hypertension [facility] 2022-09-29 00:00 Essential (primary) hypertension [facility] 2022-09-29 00:00 Pneumonia, unspecified organism [facility] Procedures date description facility 2022-09-20 00:00 Visit Code Hold [facility] 2022-09-20 00:00 Visit Code Hold [facility] 2022-09-20 00:00 Visit Code Hold [facility] 2022-09-25 00:00 Visit Code Hold [facility] 2022-09-25 00:00 Visit Code Hold [facility] [place] 2022-09-29 00:00 Visit Code Hold [facility] Results/Labs No information. Social History date description facility 2022-09-20 00:00 Never smoker [facility] 2022-09-20 00:00 Never smoker [facility] 2022-09-20 00:00 Never smoker [facility] 2022-09-25 00:00 Never smoker [facility] 2022-09-25 00:00 Never smoker [facility] 2022-09-29 00:00 Never smoker [facility] [place] Vital Signs date measurement value units 2022-09-20 00:00 BMI 23.93 kg/m2 2022-09-20 00:00 BP_diastolic 68 mmHg 2022-09-20 00:00 BP_systolic 140 mmHg 2022-09-20 00:00 heart_rate 52 /min 2022-09-20 00:00 height_metric 173.35 cm 2022-09-20 00:00 height_standard 68.25 in 2022-09-20 00:00 respiration_rate 16 /min 2022-09-20 00:00 temperature_metric 36.61 C 2022-09-20 00:00 temperature_standard 97.9 F 2022-09-20 00:00 weight_metric 71.67 kg 2022-09-20 00:00 weight_standard 158 lb 2022-09-25 00:00 BMI 23.93 kg/m2 2022-09-25 00:00 BP_diastolic 76 mmHg 2022-09-25 00:00 BP_systolic 154 mmHg 2022-09-25 00:00 heart_rate 61 /min 2022-09-25 00:00 height_metric 173.35 cm 2022-09-25 00:00 height_standard 68.25 in 2022-09-25 00:00 respiration_rate 19 /min 2022-09-25 00:00 temperature_metric 36.94 C 2022-09-25 00:00 temperature_standard 98.5 F 2022-09-25 00:00 weight_metric 71.67 kg 2022-09-25 00:00 weight_standard 158 lb 2022-09-29 00:00 BMI 23.93 kg/m2 2022-09-29 00:00 BP_diastolic 89 mmHg 2022-09-29 00:00 BP_systolic 189 mmHg 2022-09-29 00:00 heart_rate 53 /min 2022-09-29 00:00 height_metric 173.35 cm 2022-09-29 00:00 height_standard 68.25 in 2022-09-29 00:00 respiration_rate 17 /min 2022-09-29 00:00 temperature_metric 37 C 2022-09-29 00:00 temperature_standard 98.6 F 2022-09-29 00:00 weight_metric 71.67 kg 2022-09-29 00:00 weight_standard 158 lb
[2022-10-01] MEDS ORDERED: cefTRIAXone 1 GM VIAL IM STA (17:19)
[2022-10-01] MEDS ORDERED: LIDOCAINE 1% 2 ML VIAL MC ONE (17:19)
--- NOTE | 2022-10-01 17:19 | ED Physician Documentation ---
PD HPI DYSPNEA - Stated complaint Stated Complaint: COUGH - Chief complaint Chief Complaint: Resp - History obtained from History obtained from: Patient - Additional information Additional information: 86 year-old gentleman with history of right lower lobectomy for lung cancer, that said he has never been a smoker. He has been sick for almost 2 weeks with a productive cough and shortness of breath. He was seen in the office and started on doxycycline. He had x-rays that were negative but subsequently had a CT at [facility] for surveillance of his lung cancer in remission which did show reportedly pneumonia. Started azithromycin 2 days ago but still no better. PD PAST MEDICAL HISTORY - Past Medical History Cardiovascular: Hypertension Respiratory: Pneumonia, Other Endocrine/Autoimmune: None GI: None : None HEENT: Other Psych: None Musculoskeletal: None Derm: None - Past Surgical History Past Surgical History: Yes - Present Medications Home Medications: Ambulatory Orders Medication Instructions Recorded Confirmed Albuterol Sulfate [Proair Hfa 1 - 2 puffs IH Q4HR PRN 10/01/22 10/01/22 Inhaler] Amox/Clav 875/125 [Augmentin] 1 each PO Q12H #20 tablet 10/01/22 Losartan [Cozaar] 50 mg PO DAILY 10/01/22 10/01/22 Triamterene/Hydrochlorothiazid 0.5 each PO DAILY 10/01/22 10/01/22 [Triamterene-Hctz 37.5-25 mg Cp] - Allergies Allergies/Adverse Reactions: Allergies Allergy/AdvReac Type Severity Reaction Status Date / Time codeine Allergy Nausea Verified 10/01/22 16:48 - Social History Does the pt smoke?: No Smoking Status: Never smoker Does the pt drink ETOH?: Yes Does the pt have substance abuse?: No - Immunizations Immunizations are current?: Yes PD ED PE NORMAL - Vitals Vital signs reviewed: Yes - General General: Alert and oriented X 3, No acute distress - Neck Neck: Supple, no meningeal sign, No bony TTP - Cardiac Cardiac: RRR, No murmur - Respiratory Respiratory: No respiratory distress, Other (thonchorous/weehzy throughout) - Abdomen Abdomen: Non tender - Neuro Neuro: Alert and oriented X 3, Normal speech Results - Vitals Vitals: Vital Signs - 24 hr 10/01/22 16:42 Temperature 37.6 C Heart Rate 57 L Respiratory 16 Rate Blood Pressure 170/86 H O2 Saturation 93 Oxygen O2 Source Room air PD Medical Decision Making - ED course ED course: 86-year-old gentleman who has pneumonia based on prior CT was on doxycycline and just switched to azithromycin but without improvement. He is not allergic to penicillin so we will start Augmentin after IM Rocephin here. Departure - Departure Disposition: 01 Home, Self Care Clinical Impression: Pneumonia Qualifiers: Pneumonia type: due to unspecified organism Laterality: bilateral Lung location: lower lobe of lung Qualified Code(s): J18.9 - Pneumonia, unspecified organism Condition: Good Record reviewed to determine appropriate education?: Yes Instructions: ED Pneumonia Adult Prescriptions: Amox/Clav 875/125 [Augmentin] 1 each PO Q12H #20 tablet Comments: Call your doctor to arrange a follow-up appointment, make the next available appointment. In the interim, return anytime if worse or if new symptoms develop. Discharge Date/Time: 10/01/22 17:51
--- NOTE | 2022-10-01 17:26 | XRAY Report ---
PROCEDURE: Chest 2 View X-Ray INDICATIONS: cough TECHNIQUE: 2 views of the chest were acquired. COMPARISON: X-ray chest, 09/25/2022. FINDINGS: Surgical changes and devices: None. Lungs and pleura: Right hemidiaphragmatic eventration. No pleural effusions or pneumothorax. Lungs are clear. Mediastinum: Mediastinal contours are normal. Heart size is normal. Bones and chest wall: No suspicious bony abnormalities. Soft tissues appear unremarkable. IMPRESSION: No acute cardiopulmonary disease. Reviewed by: Thompson Green MD on 10/01/2022 5:25 PM PST Approved by: Thompson Green MD on 10/01/2022 5:25 PM PST Station ID: [id number]
== END 2022-10-01 17:51 | disposition home or self-care (01) ==
LOC: ED 16:23
DX: J18.9 Pneumonia, unspecified organism (principal)
CPT/HCPCS: 96372; 99283; 99284

== ENCOUNTER 2023-06-21 12:41 | Outpatient (CLI) | payer MEDICARE, OTHER ==
[2023-06-21 14:55] LABS: BASOPHILS % (AUTO) 0.5 %; EOSINOPHILS # (AUTO) 0.1 10^3/uL (0.0-0.7); HCT - HEMATOCRIT 36.8 % (42.0-52.0); HGB - HEMOGLOBIN 12.3 g/dL (14.0-18.0); LYMPHOCYTES # (AUTO) 1.9 10^3/uL (1.5-3.5); LYMPHOCYTES % (AUTO) 31.4 %; MEAN CORPUSCULAR HEMOGLOBIN 32.5 pg (27.0-31.0); MEAN CORPUSCULAR HGB CONC 33.4 g/dL (32.0-36.0); MEAN CORPUSCULAR VOLUME 97.1 fL (80.0-94.0); MEAN PLATELET VOLUME 9.6 fL (7.4-11.4); MONOCYTES # (AUTO) 0.6 10^3/uL (0.0-1.0); MONOCYTES % (AUTO) 10.1 %; NEUTROPHILS # (AUTO) 3.4 10^3/uL (1.5-6.6); NEUTROPHILS % (AUTO) 55.7 %; PLT - PLATELET COUNT 213 10^3/uL (130-450); RED BLOOD COUNT 3.79 10^6/uL (4.70-6.10); RED CELL DISTRIBUTION WIDTH 12.4 % (12.0-15.0)
[2023-06-21 17:01] LABS: CALCIUM 10.3 mg/dL (8.5-10.3); CREATININE 1.2 mg/dL (0.6-1.3); POTASSIUM 4.5 mmol/L (3.5-4.5)
== END 2023-06-21 12:42 | disposition home or self-care (01) ==
LOC: LAB.S 12:41
PROVIDERS: ATTEND Emergency Medicine
DX: K11.8 Other diseases of salivary glands (principal)
CPT/HCPCS: 36415; 80048; 85025

== ENCOUNTER 2023-06-27 13:18 | Outpatient (CLI) | payer MEDICARE, OTHER ==
[2023-06-27] MEDS ORDERED: iohexoL-300 100 ML VIAL IVP ONE (13:35)
--- NOTE | 2023-06-28 13:43 | CT Report ---
PROCEDURE: SOFT TISSUE NECK W INDICATIONS: PAROTID MASS CONTRAST: 100ml omni 300 TECHNIQUE: After the administration of intravenous contrast, 3.0 mm axial sections acquired from the sella to th e aortic arch. Additional oblique axial 3.0 mm sections acquired through the pharynx. 3 mm thick co mariam reformats were generated. For radiation dose reduction, the following was used: automated exp osure control, adjustment of mA and/or kV according to patient size. COMPARISON: None. FINDINGS: Image quality: There is artifact associated with the metallic dental work. Lymph nodes: No enlarged lymph nodes seen throughout the neck. Vessels: Visualized vasculature appears patent. Neck spaces: The oropharynx, nasopharynx, and pharynx demonstrate no mucosal lesions. The vocal cor ds, false vocal cords, pyriform sinuses, epiglottis, vallecula, and tongue base all appear normal. Glands: The area of clinical concern corresponds to the left parotid gland. At this site, the left p arotid gland is hyperenhancing, with a region of increased enhancement that measures 2 cm AP, as on s eries 2 image 26 and up to 2.7 cm craniocaudal, as on series 5 image 27. The left parotid duct does n ot appear dilated. No stones are seen along the course of the left parotid duct, although its distal aspect is limited by streak artifact from dental hardware. Mild generalized inflammatory change can b e seen involving the region surrounding the left parotid gland, with asymmetric thickening of the lef t sternocleidomastoid muscle. The right parotid gland demonstrates no significant abnormality. The submandibular glands are asymmetric, with the left side larger than the right, with the right sub mandibular gland appearing atrophic. Within the inferior aspect of the left submandibular gland, ther e is a 4 mm stone seen, as on series 2 image 46, which does not appear to be obstructing. The thyroid is normal in size and there are no incidental findings. Miscellaneous: Visualized brain and orbits appear normal. Lung apices appear clear. Superficial so ft tissues appear normal. Bones: No suspicious bony lesions. Visualized sinuses and mastoids appear unremarkable. IMPRESSION: Abnormal left parotid gland seen at the site of clinical concern, without hyperenhancing region that measures up to 2.7 cm. . Differential diagnosis includes an inflamed area or an underlying mass. If c linically appropriate, please consider follow-up ultrasound with potential ultrasound-guided percutan eous needle aspiration. There is associated soft tissue inflammatory change and thickening seen on the left, which is potenti ally related to sialadenitis No stones are seen associated with the left parotid gland. The left parotid duct does not appear dila . The submandibular glands are asymmetric, with the right parotid gland appearing atrophic. Within the inferior aspect of the left parotid gland there is a nonobstructing 4 mm stone seen. Reviewed by: Glenn Rodriguez MD on 06/28/2023 12:41 PM AKST Approved by: Glenn Rodriguez MD on 06/28/2023 12:41 PM [place] Station ID: [id number]
== END 2023-06-27 13:19 | disposition home or self-care (01) ==
LOC: DI 13:18
PROVIDERS: ATTEND Emergency Medicine
DX: K11.5 Sialolithiasis (principal)
CPT/HCPCS: 70491; Q9967

== ENCOUNTER 2023-07-05 13:52 | Outpatient (CLI) | payer MEDICARE, OTHER ==
--- NOTE | 2023-07-05 14:21 | Sleep Patient Instructions ---
Sleep Center Visit Summary - Patient Visit Information Reason for Visit: Annual visit - Patient Instructions Additional Instructions: You will continue with CPAP therapy with pressure set at 8-12 cmH2O. A supply prescription will be updated with your DME. We encourage you to continue to try to lose weight. Please follow up with the sleep care office in 1 year. - Clinic Information Contact: formerly [facility] [address] [place] [address] [email or web address] T: [phone]
--- NOTE | 2023-07-05 14:23 | SLEEP CARE CONSULTATION ---
Information from patient questionnaire entered by Taty Baker. I have reviewed and concur with the information entered by Taty Baker. This document represents the service I personally performed and the decisions made by me, Columba Woodward ARNP. History of Present Illness Service Date and Time: 07/05/2023 1352 Previous diagnosis: Severe, Obstructive Sleep Apnea-Hypopnea Syndrome AHI: 57.0 (in 2019) Reason for follow up: annual (LAST SEEN 04/2022) Equipment type: CPAP (DREAMSTATION recertified) Equipment obtained from: [employer] (getting supplies) Mask style: Nasal Backup mask available: Yes Last cushion change: unsure Prior sleep studies: Yes Year and Where: 2018 - [email or web address] Type of Sleep Study: Polysomnography HPI additional information: JESSE ZAMBRANO was diagnosed to have severe, AHI 57, obstructive sleep apnea- hypopnea syndrome and returned today for CPAP therapy annual follow-up. Sleep Study - Results Type of Sleep Study: Polysomnography Prior sleep studies: Yes Year and Where: 2018 - [email or web address] CPAP Compliance Data - Data Reviewed with Patient Average duration of nightly device use: 8 HRS 52 MINS 26 SEC Compliance rate %: 92.6 (07/03/2022-07/02/2023; 340/365 days used) Current pressure setting (cmH2O): 8-12 Average residual AHI: 2.4 Central apnea: 1 Obstructive apnea: 0 Average large leak: 10 secs Subjective Patient concerns: denies: aerophagia, mask discomfort, air blowing in eyes, mask leak noise, condensation in mask/hose, nasal congestion, dry mouth, nose, throat, epistaxis Observed to snore while using device: No Current pressure setting perceived as: comfortable On therapy, patient: reports: sleeping better, awakening more refreshed, being more awake and alert during the day, more rested overall, drowsiness while driving Initial [place] Sleepiness Scale score: 8 (in 2019) Current [place] Sleepiness Scale score: 3 (07/05/23) Allergies and Home Medications Known drug allergies: Yes (codeine) Drug allergies reviewed: Yes Home medication list reviewed: Yes (no changes) Allergy and home medication list: Allergies codeine Allergy (Verified 07/04/23 16:52) Nausea Review of Systems Review of systems same as previous: Yes (NO CHANGE) Physical Exam Vital signs obtained and entered by: TATY Hopkins MA Blood Pressure: 120/62 (LEFT ARM) Cuff size: regular Heart Rate: 67 O2 Saturation: 98 Height: 5 ft 8 in Weight: 166 lb 12.8 oz (with jacket/shoes on) Body Mass Index: 25.3 BMI Classification: Overweight Impression and Plan 1. Obstructive Sleep Apnea-Hypopnea Syndrome, severe, with good treatment compliance and good apnea control. On CPAP therapy, the patient has better sleep quality and is more rested overall. Patient has significant improvement of their sleep apnea and is satisfied with current CPAP therapy. Patient denies problems with oral dryness, nasal congestion, epistaxis, skin irritation or aer ophagia. Patient's apnea severity and rationale for treatment to reduce apnea, improve sleep quality and reduce cardiovascular and cerebrovascular events was reviewed. I also reviewed the benefit of consistent device use of CPAP for hypertension. * Continue auto CPAP pressure at 8-12 cmH2O * Update supply prescription * Notify me if snoring with mask or feeling that the pressure is too much or too little * Attempt to lose weight * Call this office if any problems using CPAP * Return for follow up in 1 year, or sooner if concerns arise Counseling Topics: Spare mask Prescriptions: Device supplies Follow up with Sleep Care in: 1 year Visit Type: In Office Time Spent with Patient (minutes): 20 Provider Statement: I spent 100% of the Face to Face Visit with the patient with greater than 50% spent counseling the patient and coordination of care.
[2023-07-05 14:27] VITALS: BP 120/62; O2SAT 98
== END 2023-07-05 13:53 | disposition home or self-care (01) ==
LOC: SC 13:52
PROVIDERS: ATTEND Nurse Practitioner Family
DX: G47.33 Obstructive sleep apnea (adult) (pediatric) (principal); E66.3 Overweight; Z68.25 Body mass index [BMI] 25.0-25.9, adult
CPT/HCPCS: 99213; G0463; 99212

== ENCOUNTER 2023-09-11 11:47 | Outpatient (CLI) | payer MEDICARE, OTHER ==
[2023-09-11 14:48] LABS: BASOPHILS % (AUTO) 0.3 %; EOSINOPHILS # (AUTO) 0.1 10^3/uL (0.0-0.7); EOSINOPHILS % (AUTO) 0.6 %; HCT - HEMATOCRIT 40.2 % (42.0-52.0); HGB - HEMOGLOBIN 13.4 g/dL (14.0-18.0); LYMPHOCYTES % (AUTO) 26.4 %; MEAN CORPUSCULAR HEMOGLOBIN 32.5 pg (27.0-31.0); MEAN CORPUSCULAR HGB CONC 33.3 g/dL (32.0-36.0); MEAN CORPUSCULAR VOLUME 97.6 fL (80.0-94.0); MEAN PLATELET VOLUME 9.4 fL (7.4-11.4); MONOCYTES # (AUTO) 1.2 10^3/uL (0.0-1.0); MONOCYTES % (AUTO) 10.6 %; NEUTROPHILS % (AUTO) 60.8 %; PLT - PLATELET COUNT 268 10^3/uL (130-450); RED BLOOD COUNT 4.12 10^6/uL (4.70-6.10); RED CELL DISTRIBUTION WIDTH 12.9 % (12.0-15.0); WHITE BLOOD COUNT 11.5 x10^3/uL (4.8-10.8)
[2023-09-11 16:04] LABS: CALCIUM 10.6 mg/dL (8.5-10.3); CREATININE 1.4 mg/dL (0.6-1.3); POTASSIUM 3.9 mmol/L (3.5-4.5)
== END 2023-09-11 11:48 | disposition home or self-care (01) ==
LOC: LAB.S 11:47
PROVIDERS: ATTEND Family Medicine
DX: N18.31 Chronic kidney disease, stage 3a (principal); D64.9 Anemia, unspecified
CPT/HCPCS: 36415; 80048; 85025

== ENCOUNTER 2023-10-21 07:00 | Outpatient (CLI) | payer MEDICARE, OTHER ==
[2023-10-21 21:15] LABS: INFLUENZA A- RESP PCR PANEL NOT DETECTED; INFLUENZA B - RESP PCR PANEL NOT DETECTED; RSV- RESP PCR PANEL NOT DETECTED; SARS-CoV-2 -RESP PCR PANEL DETECTED
--- NOTE | 2023-10-22 20:26 | XRAY Report ---
PROCEDURE: Chest 2V INDICATIONS: ACUTE COUGH TECHNIQUE: 2 views of the chest were obtained. COMPARISON: 10/01/2022 FINDINGS: Surgical changes and devices: None. Lungs and pleura: No pleural effusions or pneumothorax. Lungs are clear. Mediastinum: Mediastinal contours appear normal. Heart size is normal. Bones and chest wall: No suspicious bony lesions. Overlying soft tissues appear unremarkable. IMPRESSION: No acute cardiopulmonary findings Reviewed by: Fidel Siddiqui MD on 10/22/2023 7:24 PM AKDT Approved by: Fidel Siddiqui MD on 10/22/2023 7:24 PM AKDT Station ID: [id number]
== END 2023-10-21 23:59 | disposition home or self-care (01) ==
LOC: DI.S 07:00
PROVIDERS: ATTEND Registered Nurse
DX: R05.1 Acute cough (principal); U07.1 COVID-19
CPT/HCPCS: 87637

== ENCOUNTER 2023-11-12 11:38 | Outpatient (CLI) | payer MEDICARE, OTHER ==
[2023-11-12 15:28] LABS: CALCIUM 10.5 mg/dL (8.5-10.3); CREATININE 1.3 mg/dL (0.6-1.3); POTASSIUM 4.7 mmol/L (3.5-4.5)
== END 2023-11-12 11:39 | disposition home or self-care (01) ==
LOC: LAB.S 11:38
PROVIDERS: ATTEND Family Medicine
DX: R79.89 Other specified abnormal findings of blood chemistry (principal); R94.8 Abnormal results of function studies of other organs and systems
CPT/HCPCS: 36415; 80048; 81599

== ENCOUNTER 2024-01-09 14:46 | Outpatient (CLI) | payer MEDICARE, OTHER ==
[2024-01-09 20:44] LABS: CALCIUM 9.5 mg/dL (8.5-10.3); CREATININE 1.2 mg/dL (0.6-1.3); POTASSIUM 4.4 mmol/L (3.5-4.5)
== END 2024-01-09 14:47 | disposition home or self-care (01) ==
LOC: LAB.S 14:46
PROVIDERS: ATTEND Family Medicine
DX: N18.31 Chronic kidney disease, stage 3a (principal); R97.20 Elevated prostate specific antigen [PSA]
CPT/HCPCS: 36415; 80048; 84153